=== PATIENT | female | born 1950 | race Caucasian/White ===

== ENCOUNTER → 2024-01-14 | Outpatient (CLI) | payer MEDICARE ==
--- NOTE | 2024-01-14 20:32 | BD ---
EXAMINATION TYPE: Axial Bone Density DATE OF EXAM: 01/14/2024 CLINICAL HISTORY: 73 years old Female. ICD-10 CODE: N951, [id number] POST [place] AND OTHER DISORDER OF BONE Height: 61 Weight: 108.7 FRAX RISK QUESTIONS: Alcohol (3 or more units per day): no Family History (Parent hip fracture): no Glucocorticoids (More than 3mos): no (Ex: prednisone, prednisolone, methylprednisolone, dexamethasone, and hydrocortisone). History of Fracture in Adulthood: yes Secondary Osteoporosis: 1. Type 1 Diabetes: no 2. Hyperthyroidism: no 3. Menopause before 45: yes 4. Malnutrition: no 5. Chronic liver disease: no Rheumatoid Arthritis: no Current Tobacco Use: no RISK FACTORS HISTORY OF: Surgery to Spine/Hip(right/left)/Wrist (right/left): no MEDICATIONS: Thyroid Medications: levothyroxine How Lon years osteoporosis meds: pt has had one injection of prolia one year ago EXAM MEASUREMENTS: Bone mineral densitometry was performed using the TRANSC[employer] System. Bone mineral density as measured about the Lumbar spine is: ----- L1-L4(G/cm2): 0.883 T Score Values are as follows: ----- L1: -3.0 ----- L2: -3.4 ----- L3: -2.9 ----- L4: -1.1 ----- L1-L4: -2.5 Z Score Values are as follows: ----- L1: -0.7 ----- L2: -1.2 ----- L3: -0.6 ----- L4: 1.2 ----- L1-L4: -0.2 Bone mineral density : baseline Bone mineral density about the R hip (g/cm2): 0.688 Bone mineral density about the L hip (g/cm2): 0.684 T Score values are as follows: -----R Neck: -2.4 -----L Neck: -2.4 -----R Total: -2.5 -----L Total: -2.6 Z Score values are as follows: -----R Neck: -0.2 -----L Neck: -0.2 -----R Total: -0.5 -----L Total: -0.5 Bone mineral density : baseline FRAX%s: The graph provided illustrates a 21.0% chance for a major osteoporotic fx and a 6.2% chance f or the hips probability for fx in 10 years time. IMPRESSION: Osteoporosis (T Score less than -2.5). There is increased fracture risk and therapy is usually indicated based on age. Re-Screen 1-2 years. NOTE: T-SCORE=SD OF THE YOUNG ADULT MEAN.
--- NOTE | 2024-01-15 14:13 | MM ---
Reason for Exam: Screening (asymptomatic). Patient History: Menarche at age 11. First Full-Term at age 22. Hysterectomy at age 36. Postmenopausal. Risk Values: Amelia 5 year model risk: 1.7%. NCI Lifetime model risk: 4.3%. Prior Study Comparison: No prior studies available for comparison. Tissue Density: There are scattered areas of fibroglandular density. Findings: Analyzed By CAD. * Asymmetry left breast MLO view middle depth upper aspect 5.8 cm from the nipple and lateral aspect on CC view. * Right breast retroalveolar soft tissue tissue asymmetry on CC view. Overall Assessment: Incomplete: need additional imaging evaluation, BI-RAD 0 Management: Diagnostic Mammogram of both breasts. [facility] will attempt to contact patient to return for supplemental views and ultrasound if indicated. Patient should continue monthly self-breast exams. A clinical breast exam by your physician is recommended on an annual basis. This exam should not preclude additional follow-up of suspicious palpable abnormalities. Note on Amelia scores and lifetime risk: 1. A Amelia score greater than 3% is considered moderate risk. If this is the case, consider specialist referral to assess eligibility for a risk reducing agent. 2. If overall lifetime risk for the development of breast cancer is 20% or higher, the patient may qualify for future screening with alternating mammogram and breast MRI. Electronically signed and approved by: Paul Ramey DO
== END | disposition home or self-care (01) ==
LOC: RADMAMWWP 07:45
PROVIDERS: ATTEND Internal Medicine
DX: Z12.31 Encounter for screening mammogram for malignant neoplasm of breast (principal); M81.0 Age-related osteoporosis without current pathological fracture; M85.89 Other specified disorders of bone density and structure, multiple sites; Z78.0 Asymptomatic menopausal state
CPT/HCPCS: 77063; 77067; 77080

== ENCOUNTER → 2024-01-21 | Outpatient (CLI) | payer MEDICARE ==
--- NOTE | 2024-01-21 15:15 | MM ---
Reason for Exam: Additional evaluation requested from abnormal screening. Last screening mammogram was performed less than 1 month ago. Patient History: Menarche at age 11. First Full-Term at age 22. Hysterectomy at age 36. Postmenopausal. Risk Values: Amelia 5 year model risk: 1.7%. NCI Lifetime model risk: 4.3%. Prior Study Comparison: 01/14/2024 Bilateral MG 3D screening mammo w/cad, [facility]. Tissue Density: The breasts are heterogeneously dense, which may obscure small masses. Findings: Analyzed By CAD. Left breast: Nodular density upper outer left breast 5 cm from the nipple measuring 1 cm requires ultrasound correlation. Additional tubular 9 mm lesion noted in or central left breast 2.5 cm from the nipple. Right breast: No persistent lesions seen. Mildly prominent retroareolar ducts suggested. Overall Assessment: Incomplete: need additional imaging evaluation, BI-RAD 0 Management: Diagnostic Breast Ultrasound of the left breast. . Results were given to the patient verbally at the time of exam. Patient should continue monthly self-breast exams. A clinical breast exam by your physician is recommended on an annual basis. This exam should not preclude additional follow-up of suspicious palpable abnormalities. Note on Amelia scores and lifetime risk: 1. A Amelia score greater than 3% is considered moderate risk. If this is the case, consider specialist referral to assess eligibility for a risk reducing agent. 2. If overall lifetime risk for the development of breast cancer is 20% or higher, the patient may qualify for future screening with alternating mammogram and breast MRI. Electronically signed and approved by: John Miguel M.D. Radiologis
--- NOTE | 2024-01-21 15:15 | USB ---
Reason for Exam: Additional evaluation requested from abnormal screening. Patient History: Menarche at age 11. First Full-Term at age 22. Hysterectomy at age 36. Postmenopausal. Risk Values: Amelia 5 year model risk: 1.7%. NCI Lifetime model risk: 4.3%. Technique: Method: Targeted. Prior Study Comparison: 01/14/2024 Bilateral MG 3D screening mammo w/cad, [facility]. Findings: The lateral section of the breast of the left breast, the medial section of the breast of the left breast, the axilla of the left breast and the retroareolar of the left breast were scanned. Elongated hypoechoic lesion at the left 9:00 position measures 8 x 3 x 6 mm . Tissue diagnosis is recommended. Cluster of cysts noted at the left 2:00 position measuring 9 x 4 mm.. Overall Assessment: Suspicious, BI-RAD 4 Management: Ultrasound Core Biopsy of the left breast. A clinical breast exam by your physician is recommended on an annual basis and results should be correlated with mammographic findings. This exam should not preclude additional follow-up of suspicious palpable abnormalities. Results were given to the patient verbally at the time of exam. Electronically signed and approved by: John Miguel M.D. Radiologis
== END | disposition home or self-care (01) ==
LOC: RADMAMWWP 13:56
PROVIDERS: ATTEND Internal Medicine
DX: R92.333 Mammographic heterogeneous density, bilateral breasts (principal); R92.8 Other abnormal and inconclusive findings on diagnostic imaging of breast; Z78.0 Asymptomatic menopausal state
CPT/HCPCS: 77062; 77066

== ENCOUNTER → 2024-02-03 | Day surgery (SDC) | payer MEDICARE | LOC: RADUSWWP 12:14 | PROVIDERS: ATTEND Internal Medicine | DX: D24.2 Benign neoplasm of left breast (principal); R92.8 Other abnormal and inconclusive findings on diagnostic imaging of breast | CPT/HCPCS: 88305; 77065; 19083; A4648 ==

== ENCOUNTER 2024-02-07 14:14 | Emergency (ER) | payer MEDICARE ==
--- NOTE | 2024-02-07 15:58 | ED ---
URI HPI - General Chief Complaint: Upper Respiratory Infection Stated Complaint: Sinus Pressure,Headache Time Seen by Provider: 02/07/24 15:26 Source: patient, RN notes reviewed, old records reviewed Mode of arrival: ambulatory Limitations: no limitations - History of Present Illness Initial Comments: This is a 73-year-old female to the ER for evaluation of upper respiratory symptoms. Cough congestion and significant runny nose with sinus pressure. Patient states she w believes symptoms have progressively gotten worse and she is concerned for worsening symptoms here in the emergency department. No headache chest pain shortness breath abdominal pain no other complaint MD Complaint: sore throat, rhinorrhea, nasal congestion, sinus pain -: days(s) Severity: mild Severity scale (1-10): 3 Consistency: constant Improves With: nothing Worsens With: nothing Context: other (0) Associated Symptoms: denies other symptoms - Related Data Home Medications Medication Instructions Recorded Confirmed Levothyroxine Sodium 100 mcg PO DAILY 01/22/24 01/22/24 Pantoprazole [Protonix] 40 mg PO DAILY 01/22/24 01/22/24 Rosuvastatin [Crestor] 10 mg PO DAILY 01/22/24 01/22/24 lisinopriL [Zestril] 10 mg PO DAILY 01/22/24 01/22/24 metFORMIN HCL 1,000 mg PO BID 01/22/24 01/22/24 Previous Rx's Medication Instructions Recorded Loratadine-Pseudoeph 10-240 mg 1 tab PO DAILY #14 tab 02/07/24 [Claritin-D 24 Hour] predniSONE 50 mg PO DAILY #5 tab 02/07/24 Allergies Allergy/AdvReac Type Severity Reaction Status Date / Time latex Allergy Unknown Verified 02/07/24 14:40 Review of Systems ROS Statement: Those systems with pertinent positive or pertinent negative responses have been documented in the HPI. ROS Other: All systems not noted in ROS Statement are negative. Past Medical History Past Medical History: Asthma, Diabetes Mellitus Additional Past Medical History / Comment(s): TYPE 2 DIABETES History of Any Multi-Drug Resistant Organisms: None Reported Past Surgical History: Hernia Repair, Hysterectomy, Tonsillectomy Additional Past Surgical History / Comment(s): HIATAL HERNIA REPAIR Past Psychological History: Depression Smoking Status: Never smoker General Exam Limitations: no limitations General appearance: alert, in no apparent distress Head exam: Present: atraumatic, normocephalic, normal inspection Eye exam: Present: normal appearance, PERRL, EOMI. Absent: scleral icterus, conjunctival injection, periorbital swelling ENT exam: Present: normal exam, mucous membranes moist Neck exam: Present: normal inspection. Absent: tenderness, meningismus, lymphadenopathy Respiratory exam: Present: normal lung sounds bilaterally. Absent: respiratory distress, wheezes, rales, rhonchi, stridor Cardiovascular Exam: Present: regular rate, normal rhythm, normal heart sounds. Absent: systolic murmur, diastolic murmur, rubs, gallop, clicks GI/Abdominal exam: Present: soft, normal bowel sounds. Absent: distended, tenderness, guarding, rebound, rigid Extremities exam: Present: normal inspection, full ROM, normal capillary refill. Absent: tenderness, pedal edema, joint swelling, calf tenderness Back exam: Present: normal inspection Neurological exam: Present: alert, oriented X3, CN II-XII intact Psychiatric exam: Present: normal affect, normal mood Skin exam: Present: warm, dry, intact, normal color. Absent: rash Course Vital Signs 02/07/24 02/07/24 14:37 16:22 Temperature 98.1 F 98.3 F Pulse Rate 91 86 Respiratory 18 16 Rate Blood Pressure 139/78 169/84 O2 Sat by Pulse 98 96 Oximetry - Reevaluation(s) Reevaluation #1: Medical records reviewed Reevaluation #2: Patient symptoms unchanged, improving male Reevaluation #3: Patient informed of results and questions answered Reevaluation #4: Was pt. sent in by a medical professional or institution (, PA, SAND TECHNOLOGIST, urgent care, hospital, or senior living...) When possible be specific @ -no Did you speak to anyone other than the patient for history (EMS, parent, family, police, friend...)? What history was obtained from this source @ -no Did you review nursing and triage notes (agree or disagree)? Why? @ -agree Are old charts reviewed (outside hosp., previous admission, EMS record, old EKG, old radiological studies, urgent care reports/EKG's, senior living records)? Report findings @ -yes Differential Diagnosis (chest pain, altered mental status, abdominal pain women, abdominal pain men, vaginal bleeding, weakness, fever, dyspnea, syncope, headache, dizziness, GI bleed, back pain, seizure, CVA, palpatations, mental health, musculoskeletal)? @ -prior EKG interpreted by me (3pts min.). @ -no X-rays interpreted by me (1pt min.). @ -no CT interpreted by me (1pt min.). @ -no U/S interpreted by me (1pt. min.). @ -no What testing was considered but not performed or refused? (CT, X-rays, U/S, labs)? Why? @ -none What meds were considered but not given or refused? Why? @ -none Did you discuss the management of the patient with other professionals (professionals i.e. Dr., PA, SAND TECHNOLOGIST, lab, RT, psych nurse, certified social workers in health care, correspondence review clerk, teacher, chief technical officer, casework manager)? Give summary @ -no Was smoking cessation discussed for >3mins.? @ -no Was critical care preformed (if so, how long)? @ -no Were there social determinants of health that impacted care today? How? (Homelessness, low income, unemployed, alcoholism, drug addiction, transportation, low edu. Level, literacy, decrease access to med. care, snf, rehab)? @ -none Was there de-escalation of care discussed even if they declined (Discuss DNR or withdrawal of care, Hospice)? DNR status @ -no What co-morbidities impacted this encounter? (DM, HTN, Smoking, COPD, CAD, Cancer, CVA, ARF, Chemo, Hep., AIDS, mental health diagnosis, sleep apnea, morbid obesity)? @ -none Was patient admitted / discharged? Hospital course, mention meds given and r oute, prescriptions, significant lab abnormalities, going to OR and other pertinent info. @ - 73 female with acute sinusitis upper respiratory infection patient feels improved here in the ER and can be discharged home Discharge Undiagnosed new problem with uncertain prognosis? @ -no Drug Therapy requiring intensive monitoring for toxicity (Heparin, Nitro, Insulin, Cardizem)? @ -no Were any procedures done? @ -no Diagnosis/symptom? @ -sinusitis upper respiratory infection Acute, or Chronic, or Acute on Chronic? @ -Acute Uncomplicated (without systemic symptoms) or Complicated (systemic symptoms)? @ -Complicated Side effects of treatment? @ -no Exacerbation, Progression, or Severe Exacerbation? @ -exacerbation Poses a threat to life or bodily function? How? (Chest pain, [place], [place], pneumonia, PE, COPD, DKA, ARF, appy, cholecystitis, CVA, Diverticulitis, Homicidal, Suicidal, threat to staff... and all critical care pts) @ -yes seems of age Reevaluation #5: Differential Dyspnea: Coronary syndrome, arrhythmia, tamponade, asthma, COPD, pulmonary embolism, pneumonia, pneumothorax, pulmonary effusion, anaphylaxis, diabetic ketoacidosis, flailed chest, pulmonary contusion, diaphragmatic rupture, anemia, neuromuscular, this is not meant to be an all-inclusive list. Medical Decision Making - Medical Decision Making 73 female with acute sinusitis upper respiratory infection patient feels improved here in the ER and can be discharged home Disposition Clinical Impression: Sinusitis, Acute upper respiratory infection, Acute sinusitis Disposition: HOME SELF-CARE Condition: Good Instructions (If sedation given, give patient instructions): Sinusitis (ED) Prescriptions: Loratadine-Pseudoeph 10-240 mg [Claritin-D 24 Hour] 1 tab PO DAILY #14 tab predniSONE 50 mg PO DAILY #5 tab Is patient prescribed a controlled substance at d/c from ED?: No Referrals: Rubina Garcia MD [Primary Care Provider] - 1-2 days Time of Disposition: 16:00
[2024-02-07] MEDS: dexAMETHasone 4 MG TAB PO STA (16:18)
[2024-02-07] MEDS: LORATADINE-PSEUDOEPH 5-120 MG 1 EACH TAB.ER.12H PO STA (16:19)
[2024-02-07 16:28] VITALS: BP 169/84; PULSE 86; RESP 16; TEMP 98.3
== END 2024-02-07 16:23 | disposition home or self-care (01) ==
LOC: EC 14:14
DX: J01.90 Acute sinusitis, unspecified (principal); Z91.040 Latex allergy status
CPT/HCPCS: 99283; J8540

== ENCOUNTER 2024-10-28 10:06 | Outpatient (CLI) | payer MEDICARE ==
[2024-10-28] MEDS: DENOSUMAB 60 MG/ML 1 ML SYRINGE SQ NR (10:32)
[2024-10-28 10:33] VITALS: BP 179/81; PULSE 71; RESP 16; TEMP 97.8
== END 2024-10-28 12:40 | disposition home or self-care (01) ==
LOC: PROCWHC3 10:06
PROVIDERS: ATTEND Internal Medicine
DX: M81.0 Age-related osteoporosis without current pathological fracture (principal)
CPT/HCPCS: 96372; J0897